=== PATIENT | male | born 1980 | race African-American/Black ===

== ENCOUNTER 2016-09-25 11:32 | Emergency (ER) | payer OTHER ==
[2016-09-25 11:50] VITALS: BP 137/96
[2016-09-25] MEDS ORDERED: Tetan/Diph/Pertus SYR(Tdap)* 0.5 ML SYR(BOOSTRIX) use SYR IM ONE (12:01)
--- NOTE | 2016-09-25 12:42 | ED ---
Skin Complaint - HPI Summary HPI Summary: Lt index finver laceation while cutting vegetable w/ clean knife. No NTW, Tetanus not utd. Mild soreness - History of Current Complaint Chief Complaint: EDLacSutureRecheck Time Seen by Provider: 09/25/16 12:01 Stated Complaint: LEFT HAND/ FINGER LAC Hx Obtained From: Patient - Allergy/Home Medications Allergies/Adverse Reactions: Allergies Allergy/AdvReac Type Severity Reaction Status Date / Time Penicillins [PCN] Allergy Rash Verified 06/13/16 15:29 PMH/Surg Hx/FS Hx/Imm Hx Previously Healthy: Yes Endocrine/Hematology History: Denies: Hx Anticoagulant Therapy - ASA daily for a. 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 Alcohol Use: Weekly Substance Use Type: Reports: None Smoking Status (MU): Former Smoker Review of Systems Positive: no symptoms reported Musculoskeletal: Negative Skin: Other - see HPI Neurological: Negative Psychological: Normal All Other Systems Reviewed And Are Negative: Yes Physical Exam Triage Information Reviewed: Yes Vital Signs On Initial Exam: Initial Vitals Temp Pulse Resp BP Pulse Ox 99.0 F 58 18 137/96 97 09/25/16 11:46 09/25/16 11:46 09/25/16 11:46 09/25/16 11:46 09/25/16 11:46 Vital Signs Reviewed: Yes Appearance: Positive: Well-Appearing, No Pain Distress, Well-Nourished Skin: Positive: Warm - v- shaped flap lacaeration over the radial aspect of the distal cuticle of the Lt index finger (dorsal aspect) -bleeding controlled - flap well approximated Head/Face: Positive: Normal Head/Face Inspection Eyes: Positive: Normal, EOMI ENT: Positive: Hearing grossly normal, Pharynx normal - mucosa moist Respiratory/Lung Sounds: Positive: Breath Sounds Present Cardiovascular: Positive: Normal, Pulses are Symmetrical in both Upper and Lower Extremities - cap refill < 2 secs, radial pulse + 2 Musculoskeletal: Positive: Normal, Strength/ROM Intact Neurological: Positive: Normal, Sensory/Motor Intact, Alert, Oriented to Person Place, Time, CN Intact II-III Psychiatric: Positive: Normal Procedures - Laceration/Wound Repair 1 Location: upper extremity - Lt index finger Description: Irregular Length, Depth and Shape: 1.5cm (total) x 2.5mm Betadine Prep?: Yes Laceration/Wound Explored: clean Closure: Skin Adhesive, SteriStrips Sterile Dressing Applied?: Yes - steristrips and dermabond Diagnostics - Vital Signs Vital Signs Temp Pulse Resp BP Pulse Ox 09/25/16 11:46 99.0 F 58 18 137/96 97 - Laboratory Lab Statement: Any lab studies that have been ordered have been reviewed, and results considered in the medical decision making process. Course/Dx - Diagnoses Provider Diagnoses: Laceration of left index finger Discharge - Discharge Plan Condition: Stable Disposition: HOME Patient Education Materials: Finger Laceration (ED), Steristrips (ED), Skin Adhesive Care (ED) Referrals: [facility] [place] PHYSICIAN REFERRAL [Outside] Additional Instructions: Keep finger clean and dry - do not remove steripstrips - they will fall off on their own. Keep wound resting for 10-14 days. *If you develop redness, streaking, purulent drainage, fever, chills, seek medical attention sooner
== END 2016-09-25 13:10 | disposition home or self-care (01) ==
LOC: ED 11:32
DX: S61.211A Laceration without foreign body of left index finger without damage to nail, initial encounter (principal); W26.0XXA Contact with knife, initial encounter; Y93.9 Activity, unspecified; Y92.9 Unspecified place or not applicable; Y99.9 Unspecified external cause status; Z87.891 Personal history of nicotine dependence
CPT/HCPCS: 90471; 90715; 99282

== ENCOUNTER 2017-03-12 04:28 | Emergency (ER) | payer OTHER ==
[2017-03-12 05:01] LABS: Hematocrit 43 % (42-52); Hemoglobin 14.2 g/dl (14.0-18.0); Mean Corpuscular HGB Conc 33 g/dl (31-36); Mean Corpuscular Hemoglobin 32 pg (27-31); Mean Corpuscular Volume 96 fL (80-94); Mean Platelet Volume 11 um3 (7.4-10.4); Red Blood Count 4.44 10^6/ul (4.0-5.4); Red Cell Distribution Width 14 % (10.5-15); White Blood Count 8.2 10^3/ul (3.5-10.8)
[2017-03-12 05:17] LABS: Albumin 4.1 g/dL (3.2-5.2); BUN/Creatinine Ratio 13.2 (8-20); Calcium 9.3 mg/dL (8.6-10.3); EGFR African American 86.8 (>60); EGFR Non-African American 67.5 (>60); Globulin 2.9 g/dL (2-4); Magnesium 2.1 mg/dL (1.9-2.7); Potassium 3.6 mmol/L (3.5-5.0); Total Bilirubin 0.5 mg/dL (0.2-1.0)
[2017-03-12 05:19] LABS: Troponin I 0.01 ng/mL (<0.04)
[2017-03-12 05:43] LABS: TSH (Thyroid Stimulating Horm) 1.23 mcIU/mL (0.34-5.60)
--- NOTE | 2017-03-12 05:55 | ED ---
Sarah Foster Rebecca, scribed for Gunnar Lyman MD on 03/12/17 at 0448 . Shortness of Breath - HPI Summary HPI Summary: Pt is a 37 y/o M who presents to ED c/o mild SOB. Sx began suddenly at 0345, waking him up from sleep. SOB characterized as dyspnea at rest and has been constant since onset. Additionally c/o palpitations, dizziness characterized as lightheadedness and LUE tingling. Sx aggravated by nothing, alleviated by spontaneous resolution. Prior similar episodes while experiencing A Fib (off and on since onset last March). [place] similarly the other day after drinking excessive caffeine. - History of Current Complaint Chief Complaint: EDDizziness Hx Obtained From: Patient Onset/Duration: Sudden Onset, Still Present Timing: Constant Current Severity: None Dyspnea At: Rest Aggrevating Factors: Nothing Alleviating Factors: Nothing Associated Signs & Symptoms: Dizzy - Lightheadedness - Allergy/Home Medications Allergies/Adverse Reactions: Allergies Allergy/AdvReac Type Severity Reaction Status Date / Time Penicillins [PCN] Allergy Rash Verified 03/12/17 04:45 PMH/Surg Hx/FS Hx/Imm Hx Endocrine/Hematology History: Denies: Hx Anticoagulant Therapy - ASA daily for a. fib, Hx Blood Disorders Cardiovascular History: Reports: Hx Atrial Fibrillation - Immunization History Date of Tetanus Vaccine: unk Date of Influenza Vaccine: none Infectious Disease History: No Infectious Disease History: Denies: Hx of Known/Suspected MRSA, Traveled Outside the [place] in Last 30 Days - Family History Known Family History: Positive: Cardiac Disease - Social History Alcohol Use: Daily Alcohol Amount: 1 beer Substance Use Type: Reports: None Smoking Status (MU): Former Smoker Review of Systems Positive: Palpitations Positive: Shortness Of Breath Neurological: Other - Dizziness (lightheadedness); LUE tingling All Other Systems Reviewed And Are Negative: Yes Physical Exam Triage Information Reviewed: Yes Vital Signs On Initial Exam: Initial Vitals Temp Pulse Resp BP Pulse Ox 98.3 F 71 12 120/74 98 03/12/17 04:42 03/12/17 04:42 03/12/17 04:42 03/12/17 04:42 03/12/17 04:42 Vital Signs Reviewed: Yes Appearance: Positive: Well-Appearing, No Pain Distress Skin: Positive: Warm Head/Face: Positive: Normal Head/Face Inspection Eyes: Positive: JACKIE ENT: Positive: Hearing grossly normal Neck: Positive: Supple Respiratory/Lung Sounds: Positive: Breath Sounds Present Cardiovascular: Positive: RRR. Negative: Murmur Abdomen Description: Positive: Nontender, Soft Bowel Sounds: Positive: Present Musculoskeletal: Positive: Strength/ROM Intact Neurological: Positive: Alert, Oriented to Person Place, Time Psychiatric: Positive: Affect/Mood Appropriate - [place] Coma Scale Coma Scale Total: 15 Diagnostics - Vital Signs Vital Signs Temp Pulse Resp BP Pulse Ox 03/12/17 04:42 98.3 F 71 12 120/74 98 - Laboratory Lab Results: Lab Results 03/12/17 03/12/17 03/12/17 Range/Units 04:45 04:45 04:45 WBC 8.2 (3.5-10.8) 10^3/ul RBC 4.44 (4.0-5.4) 10^6/ul Hgb 14.2 (14.0-18.0) g/dl Hct 43 (42-52) % MCV 96 H (80-94) fL MCH 32 H (27-31) pg MCHC 33 (31-36) g/dl RDW 14 (10.5-15) % Plt Count 180 (150-450) 10^3/ul MPV 11 H (7.4-10.4) um3 Neut % (Auto) 71.3 (38-83) % Lymph % (Auto) 13.8 L (25-47) % [place] % (Auto) 7.6 (1-9) % Eos % (Auto) 5.0 (0-6) % Baso % (Auto) 2.3 H (0-2) % Absolute Neuts (auto) 5.8 (1.5-7.7) 10^3/ul Absolute Lymphs (auto) 1.1 (1.0-4.8) 10^3/ul Absolute Monos (auto) 0.6 (0-0.8) 10^3/ul Absolute Eos (auto) 0.4 (0-0.6) 10^3/ul Absolute Basos (auto) 0.2 (0-0.2) 10^3/ul Absolute Nucleated RBC 0.01 10^3/ul Nucleated RBC % 0.1 Sodium 137 (133-145) mmol/L Potassium 3.6 (3.5-5.0) mmol/L Chloride 106 (101-111) mmol/L Carbon Dioxide 24 (22-32) mmol/L Anion Gap 7 (2-11) mmol/L BUN 16 (6-24) mg/dL Creatinine 1.21 H (0.67-1.17) mg/dL Est GFR ( Amer) 86.8 (>60) Est GFR (Non-Af Amer) 67.5 (>60) BUN/Creatinine Ratio 13.2 (8-20) Glucose 94 (70-100) mg/dL Lactic Acid 0.8 (0.5-2.0) mmol/L Calcium 9.3 (8.6-10.3) mg/dL Magnesium 2.1 (1.9-2.7) mg/dL Total Bilirubin 0.50 (0.2-1.0) mg/dL AST 21 (13-39) U/L ALT 24 (7-52) U/L Alkaline Phosphatase 89 (34-104) U/L Troponin I 0.01 (<0.04) ng/mL Total Protein 7.0 (6.4-8.9) g/dL Albumin 4.1 (3.2-5.2) g/dL Globulin 2.9 (2-4) g/dL Albumin/Globulin Ratio 1.4 (1-3) TSH 1.23 (0.34-5.60) mcIU/mL Result Diagrams: 03/12/17 04:45 03/12/17 04:45 Lab Statement: Any lab studies that have been ordered have been reviewed, and results considered in the medical decision making process. - Radiology CXR Xray Interpretation: No Acute Changes Radiology Interpretation Completed By: ED Physician - EKG 442 Cardiac Rate: NL - 67 bpm EKG Rhythm: Sinus Rhythm EKG Interpretation: No STEMI Course/Dx - Course Assessment/Plan: Pt is a 37 y/o M who presents to ED c/o mild SOB since 344 this morning. SOB characterized as dyspnea at rest and has been constant since onset. Additionally c/o palpitatoins, dizziness characterized as lightheadedness and LUE tingling. Sx alleviated by spontaneous resolution. Prior similar episodes while experiencing A Fib (off and on since onset last March). [place] similarly the other day after drinking excessive caffeine. EKG and CXR reveal no acute findings. Troponin of 0.01. He will eb D/C to home with Dx of palpitations. He understands and agrees. - Diagnoses Provider Diagnoses: Palpitations Discharge - Discharge Plan Condition: Stable Disposition: HOME Patient Education Materials: Palpitations (ED) Referrals: [facility] – [place] PHYSICIAN REFERRAL [Outside] - 3 Days The documentation as recorded by the Sarah leal Rebecca accurately reflects the service I personally performed and the decisions made by me, Gunnar Lyman MD.
[2017-03-12 06:01] VITALS: BP 113/69
--- NOTE | 2017-03-12 08:08 | RAD ---
INDICATION: Palpitations COMPARISON: None TECHNIQUE: PA and lateral dual-energy views were obtained. FINDINGS: Bones/Soft Tissues: There are no acute bony findings. Cardiomediastinal: The cardiomediastinal silhouette is normal. Lungs: There are no infiltrates. Pleura: There are no pleural effusions. Other: None IMPRESSION: NORMAL CHEST.
== END 2017-03-12 06:00 | disposition home or self-care (01) ==
LOC: ED 04:28
DX: R00.2 Palpitations (principal); R42 Dizziness and giddiness; R06.02 Shortness of breath; I48.91 Unspecified atrial fibrillation; Z79.01 Long term (current) use of anticoagulants; Z88.0 Allergy status to penicillin; Z87.891 Personal history of nicotine dependence
CPT/HCPCS: 36415; 71020; 80053; 83605; 83735; 84443; 84484; 85025; 85379; 93005; 99282

== ENCOUNTER 2017-06-04 00:54 | Emergency (ER) | payer OTHER ==
[2017-06-04 02:54] LABS: Hematocrit 42 % (42-52); Hemoglobin 14.3 g/dl (14.0-18.0); Mean Corpuscular HGB Conc 34 g/dl (31-36); Mean Corpuscular Hemoglobin 32 pg (27-31); Mean Corpuscular Volume 93 fL (80-94); Mean Platelet Volume 9 um3 (7.4-10.4); Red Cell Distribution Width 14 % (10.5-15); White Blood Count 5.7 10^3/ul (3.5-10.8)
[2017-06-04 03:18] LABS: Albumin 4.2 g/dL (3.2-5.2); BUN/Creatinine Ratio 11.2 (8-20); EGFR African American 83.6 (>60); Potassium 4.1 mmol/L (3.5-5.0); Total Bilirubin 0.5 mg/dL (0.2-1.0); Total Protein 7.2 g/dL (6.4-8.9); Troponin I 0.01 ng/mL (<0.04)
[2017-06-04 03:48] VITALS: BP 136/66
--- NOTE | 2017-06-04 06:50 | ED ---
Sarah Foster Rebecca, scribed for Drew Berry on 06/04/17 at 0122 . Dizziness - HPI Summary HPI Summary: Pt is a 37 y/o M BIBA who presents to ED c/o dizziness. Pt reports "I thought I was dying" and "I thought I was having a hemorrhage." Additionally notes bilateral hand tingling and anxiety. Denies LANGE, CP, SIs. Confirms EtOH and cocaine use tonight. Last used cocaine about 2 hours ago. Pt reports that he recently had a friend from a hemorrhage and has known multiple people who have previously. PMHx anxiety and A Fib - is not on any blood thinners though takes 81 mg ASA daily. - History Of Current Complaint Chief Complaint: EDGeneral Stated Complaint: DIZZY Time Seen by Provider: 06/04/17 01:11 Hx Obtained From: Patient Onset/Duration: Still Present Character: Dizzy Aggravating Factor(s): Nothing Alleviating Factor(s): Nothing Associated Signs And Symptoms: Positive: Other: - Bialteral hand tingling. Negative: Chest Pain - Allergies/Home Medications Allergies/Adverse Reactions: Allergies Allergy/AdvReac Type Severity Reaction Status Date / Time Penicillins [PCN] Allergy Rash Verified 03/12/17 04:45 PMH/Surg Hx/FS Hx/Imm Hx Endocrine/Hematology History: Denies: Hx Anticoagulant Therapy - ASA daily for a. fib, Hx Blood Disorders Cardiovascular History: Reports: Hx Atrial Fibrillation Respiratory History: Reports: Hx Asthma - Immunization History Date of Tetanus Vaccine: unk Date of Influenza Vaccine: none Infectious Disease History: No Infectious Disease History: Denies: Hx of Known/Suspected MRSA, Traveled Outside the [place] in Last 30 Days - Family History Known Family History: Positive: Cardiac Disease - Social History Alcohol Use: Daily Alcohol Amount: 1 beer Substance Use Type: Reports: None Hx Tobacco Use: Yes Smoking Status (MU): Current Some Day Smoker Review of Systems Negative: Chest Pain Neurological: Other - Dizzines, bilateral hand tingling Negative: Headache Positive: Anxious, Other - NEGATIVE: SIs All Other Systems Reviewed And Are Negative: Yes Physical Exam - Summary Physical Exam Summary: Appearance: Well appearing, no pain distress Skin: warm, dry, reflects adequate perfusion Head/face: normal Eyes: EOMI, JACKIE ENT: normal Neck: supple, nontender Respiratory: CTA, breath sounds present Cardiovascular: RRR, pulses symmetrical Abdomen: nontender, soft Bowel: present Musculoskeletal: normal, strength/ROM intact Neuro: normal, sensory motor intact, A&Ox3 Triage Information Reviewed: Yes Vital Signs On Initial Exam: Initial Vitals Temp Pulse Resp BP Pulse Ox 98.6 F 86 21 143/80 96 06/04/17 00:59 06/04/17 00:59 06/04/17 00:59 06/04/17 00:59 06/04/17 00:59 Vital Signs Reviewed: Yes - [place] Coma Scale Coma Scale Total: 15 Diagnostics - Vital Signs Vital Signs Temp Pulse Resp BP Pulse Ox 06/04/17 00:59 98.6 F 86 21 143/80 96 - Laboratory Result Diagrams: 06/04/17 02:41 06/04/17 02:41 Lab Statement: Any lab studies that have been ordered have been reviewed, and results considered in the medical decision making process. - Radiology CXR Xray Interpretation: No Acute Changes Radiology Interpretation Completed By: ED Physician - CT Brain CT CT Interpretation: No Acute Changes - No acute intracranial abnormality. No hemorrhage. No visible infarct or mass. Osseous structures are intact. ED physician reviewed radiology report and agrees. CT Interpretation Completed By: Radiologist - EKG 0233 Cardiac Rate: NL - 77 bpm EKG Rhythm: Sinus Rhythm EKG Interpretation: Early repolarization Re-Evaluation - Re-Evaluation First Eval Re-Evaluation Time: 03:29 Change: Improved Comment: Discussed D/C plan with the pt Dizzy Course/Dx - Course Assessment/Plan: Pt is a 37 y/o M BIBA who presents to ED c/o dizziness. Pt reports "I thought I was dying" and "I thought I was having a hemorrhage." Additionally notes bilateral hand tingling and anxiety. Denies LANGE, CP, SIs. Confirms EtOH and cocaine use tonight. Last used cocaine about 2 hours ago. Pt reports that he recently had a friend from a hemorrhage and has known multiple people who have previously. PMHx anxiety and A Fib - is not on any blood thinners though takes 81 mg ASA daily. CXR and Brain CT reveal no acute findings. EKG is sinus rhythm with early repolarization. Pt will be D/C to home with Dx of anxiety, dehydration, dizziness and substance abuse with a follow up with his PCP. He understands and agrees. Allergies noted. Medications reviewed. - Diagnoses Provider Diagnoses: Dehydration, Dizziness, Anxiety, Substance abuse Discharge - Discharge Plan Condition: Stable Disposition: HOME Patient Education Materials: Anxiety (ED), Dehydration (ED), Polysubstance Abuse (ED), Dizziness (ED) Referrals: No Primary Care Phys,NOPCP [Primary Care Provider] - [facility] – [place] PHYSICIAN REFERRAL [Outside] - 3 Days The documentation as recorded by the Sarah leal Rebecca accurately reflects the service I personally performed and the decisions made by , Drew Berry.
--- NOTE | 2017-06-04 07:55 | RAD ---
Indication: Shortness of breath. 2 views of the chest including dual energy PA views demonstrate no mediastinal shift. Heart is of normal size and configuration. Lung coyle are clear. IMPRESSION: No active cardiopulmonary disease is noted. No changes noted since March 12, 2017.
--- NOTE | 2017-06-04 07:56 | RAD ---
Indication: Dizziness, anxiety and cocaine use CT of the brain was performed without IV contrast. Ventricular structures are midline. No midline shift is noted. The extraction spaces are unremarkable. There is no evidence of intracranial mass or hemorrhage. No other high or low density lesions are identified. Mastoid air cells and paranasal sinuses are otherwise unremarkable. IMPRESSION: No intracranial mass or hemorrhage is noted.
== END 2017-06-04 03:49 | disposition home or self-care (01) ==
LOC: ED 00:54
DX: R42 Dizziness and giddiness (principal); F41.9 Anxiety disorder, unspecified; Z72.0 Tobacco use
CPT/HCPCS: 36415; 70450; 71020; 80053; 84484; 85025; 85610; 85730; 93005; 99283

== ENCOUNTER 2018-09-20 10:15 | Day surgery (SDC) | payer OTHER ==
[~2018-09-20 10:15] MED LIST: Buffered Lidocaine 1% SYRIN* 1 ML/SYRINGE INTRADERM ONE; Dexamethasone TAB* 4 MG PO ONE; DiMENhydriNATE IV* 50 MG/ML VIAL IV PUSH PRN; Famotidine IV* 10 MG/ML 2 ML (20 mg) IV ONE; Lactated Ringers 1000 ML Bag* 1,000 ML IV SCH; Morphine VIAL* 4 MG/ML VIAL (1 ml vial) IV PRN; Naloxone* 0.4 MG/ML 1 ML VIAL IV PRN; Ondansetron TAB* 4 MG PO ONE; PROCHLORPERAZINE INJ 5 MG/ML 2 ML VIAL IV PRN; Scopolamine 1.5 mg* PATCH TRANSDERM PRN; fentaNYL* 50 MCG/ML 2 ML VIAL (100 MCG VIAL) IV PRN; oxyCODONE/Acetamin 5/325 MG* TAB PO PRN
[2018-09-20] MEDS ORDERED: Ondansetron ODT TAB* 4 MG ONE ×2 (10:27→10:41)
[2018-09-20] MEDS ORDERED: Famotidine IV* 10 MG/ML 2 ML (20 mg) ONE ×2 (10:27→10:41)
[2018-09-20] MEDS ORDERED: Dexamethasone TAB* 4 MG ONE (10:27)
[2018-09-20] MEDS ORDERED: Dexamethasone IV* 4 MG/ML 1 ML (4 MG) ONE (10:41)
[2018-09-20] MEDS ORDERED: fentaNYL* 50 MCG/ML 5 ML VIAL (250 MCG VIAL) ONE (10:53)
[2018-09-20] MEDS ORDERED: Atracurium* 10 MG/ML 10 ML VIAL ONE (10:53)
[2018-09-20] MEDS ORDERED: KETAMINE HCL* 50 MG/ML 10 ML VIAL ONE (10:54)
[2018-09-20] MEDS ORDERED: Midazolam* 1 MG/ML 5 ML VIAL (5 MG) ONE (10:54)
[2018-09-20] MEDS ORDERED: EPINEPHRINE 1 MG/ML 1 ML VIAL ONE ×2 (11:22→12:44)
[2018-09-20] MEDS ORDERED: Ciprofloxacin 0.3% OPTH.SOL* 2.5 ML BTL ONE (11:22)
[2018-09-20] MEDS ORDERED: Lidocain 1% EPI 1:100,000 * 30 ML MDV ONE (11:22)
[2018-09-20] MEDS ORDERED: Bacitracin OINTMENT* 0.5% 0.5 oz TUBE ONE (11:23)
[2018-09-20] MEDS ORDERED: Gelfoam Sponge SIZE 100* SPONGE ONE (11:23)
[2018-09-20] MEDS ORDERED: Propofol* 10 MG/ML 20 ML BTL ONE (12:38)
[2018-09-20] MEDS ORDERED: Succinylcholine* 20 MG/ML 10 ML VIAL ONE (12:38)
[2018-09-20] MEDS ORDERED: Lidocaine 2% PF * 5 ML VIAL ONE ×2 (12:38→14:00)
[2018-09-20] MEDS ORDERED: Metoprolol Tartrate IV* 1 MG/ML 5 ML VIAL ONE (12:39)
[2018-09-20 16:48] VITALS: BP 135/94
--- NOTE | 2018-09-20 21:10 | OP ---
DATE OF OPERATION: 09/20/18 - FORMERLY [facility] DATE OF : 80 SURGEON: Giancarlo Hall MD COSMETOLOGIST APPRENTICE: None. ANESTHESIA: General. PRE-OP DIAGNOSIS: Right-sided otosclerosis. POST-OP DIAGNOSIS: Right-sided otosclerosis. OPERATIVE PROCEDURE: Right stapedectomy. ESTIMATED BLOOD LOSS: Negligible. FINDINGS: Fixed right stapes consistent with otosclerosis. INDICATIONS: This is a 38-year-old male with longstanding bilateral conductive hearing loss and a normal CT scan of the temporal bones. The decision was made to bring the patient to the operating room for middle ear exploration, probable right-sided stapedectomy with a presumptive diagnosis of otosclerosis. DESCRIPTION OF PROCEDURE: On 09/20/18, the patient was brought to the operating room. General anesthesia was induced and an oral endotracheal tube was placed. The table was turned 90 degrees. The right ear was prepped with Betadine, draped in sterile fashion, and a time-out was performed. The operating microscope was used throughout the procedure. The ear was copiously irrigated free of Betadine with saline. Once the ear was completely clear, a 4- quadrant canal injection was made with 1% lidocaine with 1:100,000 epinephrine. Radial incisions were then made at 12 o'clock and 6 o'clock using the sickle knife and an angled [place] blade was then used to make a circumferential incision posteriorly connecting the 2 radial incisions. A piece of epi-soaked Gelfoam was then placed to assist with hemostasis. At this point, the tympanomeatal flap was elevated. The middle ear was explored. The ossicular chain was palpated and the stapes did appear to be fixed. Some bone was taken down in the region of the scutum using a small hand curette. This was done both to mobilize the chorda tympani nerve as well as to better visualize the stapes. Once the overhanging bone was taken down, a joint knife was used to severe the incudostapedial joint. A straight Bellucci scissors was then used to cut the stapedius tendon. The superstructure was then downfractured and removed. The footplate region was inspected. A site was selected to create a luz. The OmniGuide CO2 laser was brought into the field. Initially, 2 watt pulses at 100 milliseconds were used. This was ultimately increased to 3 hemphill because of the thickness of the footplate. Once a luz of approximately 0.6 mm was created, a 0.6 mm secondary market manager was then used to smooth the edges of the fenestra and assure the appropriate size of the fenestration. A 0.5 x 4.5 mm stapes SMart prosthesis was then selected. It was positioned into the stapedotomy and then suspended from the incus. The prosthesis was crimped using the Omni-Guide laser. There was good tight connection between the prosthesis and the incus and motion of the incus resulted in nice free unimpeded motion of the prosthesis in the stapedotomy. The promontory was then scratched to allow for little bit of blood to run around the prosthesis to create a blood patch. The tympanomeatal flap was then placed back in position and the ear canal packed with Floxin-soaked Gelfoam. The patient was returned to the care of the anesthesiologist, extubated without difficulty and delivered to the PACU in stable condition. [id number]/CPS #: [id number] RADHIKA
[2018-09-23] MEDS ORDERED: Scopolamine PATCH Remove* 1 NOTE MISC PATCH OFF ONE (05:21)
== END 2018-09-20 16:35 | disposition home or self-care (01) ==
LOC: OR 10:15
PROVIDERS: ATTEND Otolaryngology
DX: H80.81 Other otosclerosis, right ear (principal); H90.0 Conductive hearing loss, bilateral; I48.91 Unspecified atrial fibrillation; Z79.82 Long term (current) use of aspirin; Z72.0 Tobacco use; Z88.0 Allergy status to penicillin; J45.909 Unspecified asthma, uncomplicated
CPT/HCPCS: 88304; 88311; A9270-GY; C1713; J0330; J1100; J2250; J2704; J3010; J3490; J8540